=== PATIENT | male | born 1945 | race Caucasian/White ===

== ENCOUNTER → 2016-05-10 | Outpatient (CLI) | payer BC ==
[~2016-05-10] MED LIST: ASPI81TA28 PO; ATOR-24 PO; CLB/200 PO; CLR10 PO; CYM/30 PO; DIAZ10TA PO; DOCU100C31 PO; DUTA0.5C PO; GABA800T PO; GLC/500 PO; IPRA0.037 NAE; LEVE1TAB57 PO; LISI-788 PO; METH-307 PO; NXM/40 PO; OXYC-57 PO; OXYC15TA89 PO; OXYC60TA8 PO; OXYCONTIN PO; PENT400T2 PO; RANI300T2 PO; RXC5 PO; SNT/10 PO
== END | disposition home or self-care (01) ==
LOC: C.PATHSPEC 10:37
PROVIDERS: ATTEND Plastic Surgery
DX: D23.21 Other benign neoplasm of skin of right ear and external auricular canal (principal)

== ENCOUNTER → 2016-06-28 | Day surgery (SDC) | payer BC ==
[2016-06-21 13:15] VITALS: BMI 27.0
[~2016-06-28] VITALS: Ht 180.3 cm; Wt 88.2 kg
[~2016-06-28] MED LIST changes: +ONDANSETRON INJ 2 MG/ML 2 ML VIAL IV PRN; -OXYC15TA89 PO; -OXYC60TA8 PO; -RXC5 PO
[2016-06-28 09:08] VITALS: Ht 180.3 cm; Wt 88.2 kg
--- NOTE | 2016-06-28 09:28 | Endo History and Physical ---
History & Physical Date of Service: Jun 28, 2016. Chief Complaint: bloating Referring Physician: History of Present Illness Patient with several months of bloating. Past Medical History Arthritis, Reflux, Seizure Disorder, Cancer, High Cholesterol, Hypertension, Other Past Surgical History Hx Cardiac Surgery: No Hx Internal Defibrillator: No Hx Pacemaker: No Hx Abdominal Surgery: No Hx of Implantable Prosthesis: No Hx Post-Op Nausea and Vomiting: No Hx Cancer Surgery: Yes (SKIN EXCISION ON BACK) Hx Thoracic Surgery: No Hx Orthopedic: Yes (RT/LEFT SHOULDER ,RT KNEE ARTHROSCOPY, RIGHT ELBOW SX) Hx Urinary Tract Surgery: No Family History Colon CA Social History Smoking Status: Never Smoker Hx Substance Use: Yes (SEE MED REC) Hx Alcohol Use: No Allergies Coded Allergies: Adhesives (Verified Allergy, Unknown, SOME TAPES CAUSE SENSITIVITY, ) NO KNOWN DRUG ALLERGIES (Verified Allergy, Unknown, ., 06/21/16) Milk (Verified Adverse Reaction, Mild, GI DISRUPTIIONS, 06/21/16) Current Medications Reported Home Medications Medications Dose Route/Sig Max Daily Dose Days Date Category Dose Instructions Glucophage (Metformin Hcl) 500 Mg Tab 500 Mg PO BID 06/21/16 Reported Docusate Sodium 100 Mg Cap 1 Cap PO BID PRN 06/21/16 Reported CeleBREX (Celecoxib) 200 Mg Cap 200 Mg PO QAM 06/21/16 Reported Percocet 5MG/325MG (Oxycodone/Acetaminophen) Tab 1 Tablet PO Q4H PRN 06/21/16 Reported PAIN [Oxycontin] 30 Mg PO BID 06/21/16 Reported Atrovent Nasal [place] (Ipratropium [place] (Nasal)) 0.06 % Mary 2 [place] CARLITOS TID PRN 30 06/24/15 Reported Aspirin Ec (Aspirin) 81 Mg Tab 81 Mg PO QAM 06/24/15 Reported Lipitor (Atorvastatin Calcium) 40 Mg Tab 40 Mg PO QAM 06/24/15 Reported Trental (Pentoxifylline) 400 Mg Tab 400 Mg PO TID 06/24/15 Reported Valium (Diazepam) 10 Mg Tab 10 Mg PO Q8 PRN 06/24/[address] WITH MEDICATION Robaxin (Methocarbamol) 750 Mg Tab 750 Mg PO BID 06/24/15 Reported Keppra (Levetiracetam) 1,000 Mg Tab 1,000 Mg PO QPM 06/24/15 Reported Keppra (Levetiracetam) 1,000 Mg Tab 1,500 Mg PO QAM 06/24/15 Reported Claritin (Loratadine) 10 Mg Tab 10 Mg PO QAM 06/24/15 Reported Zestoretic 20MG/25MG (HCTZ/Lisinopril) Tab 1 Tab PO QAM 06/24/15 Reported Neurontin (Gabapentin) 800 Mg Tab 800 Mg PO QID 06/24/15 Reported Cymbalta (Duloxetine HCl) 30 Mg Cap 90 Mg PO QAM 30 06/24/15 Reported Nexium (Esomeprazole Magnesium) 40 Mg Capcr 40 Mg PO QAM 06/24/15 Reported Sonata (Zaleplon) 10 Mg Cap 10 Mg PO HS PRN 06/24/15 Reported Avodart (Dutasteride) 0.5 Mg Cap 1 Cap PO QAM 30 01/19/15 Reported Zantac (Ranitidine HCl) 300 Mg Tab 300 Mg PO HS 02/11/07 Reported Vital Signs Weight (Kilograms): 88.18 Height (Feet): 5 Height (Inches): 11 Date Time Temp Pulse Resp B/P Pulse Ox O2 Delivery O2 Flow Rate FiO2 06/28/16 09:13 36.9 64 24 126/72 97 Room Air 06/28/16 09:11 36.9 64 24 126/72 97 Room Air Physical Exam General Appearance: no apparent distress Respiratory/Chest: Auscultation: breath sounds normal Cardiovascular: Heart Auscultation: RRR Abdomen: Inspection & Palpation: soft Assessment and Plan EGD for bloating
--- NOTE | 2016-06-28 09:50 | Discharge Instructions ---
Endoscopy Patient Instructions Date / Procedure(s) Performed Jun 28, 2016. EGD Allergy Information Coded Allergies: Adhesives (Verified Allergy, Unknown, SOME TAPES CAUSE SENSITIVITY, ) NO KNOWN DRUG ALLERGIES (Verified Allergy, Unknown, ., 06/21/16) Milk (Verified Adverse Reaction, Mild, GI DISRUPTIIONS, 06/21/16) Discharge Date / Findings Jun 28, 2016. 1 cm hiatal hernia Mild gastritis Several gastric polyps (likely benign) Medication Instructions Stopped Medication(s): CAROLYN Reported Home Medications Medications Dose Route/Sig Max Daily Dose Days Date Category Dose Instructions Glucophage (Metformin Hcl) 500 Mg Tab 500 Mg PO BID 06/21/16 Reported Docusate Sodium 100 Mg Cap 1 Cap PO BID PRN 06/21/16 Reported CeleBREX (Celecoxib) 200 Mg Cap 200 Mg PO QAM 06/21/16 Reported Percocet 5MG/325MG (Oxycodone/Acetaminophen) Tab 1 Tablet PO Q4H PRN 06/21/16 Reported PAIN [Oxycontin] 30 Mg PO BID 06/21/16 Reported Atrovent Nasal [place] (Ipratropium [place] (Nasal)) 0.06 % Mary 2 [place] CARLITOS TID PRN 30 06/24/15 Reported Aspirin Ec (Aspirin) 81 Mg Tab 81 Mg PO QAM 06/24/15 Reported Lipitor (Atorvastatin Calcium) 40 Mg Tab 40 Mg PO QAM 06/24/15 Reported Trental (Pentoxifylline) 400 Mg Tab 400 Mg PO TID 06/24/15 Reported Valium (Diazepam) 10 Mg Tab 10 Mg PO Q8 PRN 06/24/[address] WITH MEDICATION Robaxin (Methocarbamol) 750 Mg Tab 750 Mg PO BID 06/24/15 Reported Keppra (Levetiracetam) 1,000 Mg Tab 1,000 Mg PO QPM 06/24/15 Reported Keppra (Levetiracetam) 1,000 Mg Tab 1,500 Mg PO QAM 06/24/15 Reported Claritin (Loratadine) 10 Mg Tab 10 Mg PO QAM 06/24/15 Reported Zestoretic 20MG/25MG (HCTZ/Lisinopril) Tab 1 Tab PO QAM 06/24/15 Reported Neurontin (Gabapentin) 800 Mg Tab 800 Mg PO QID 06/24/15 Reported Cymbalta (Duloxetine HCl) 30 Mg Cap 90 Mg PO QAM 30 06/24/15 Reported Nexium (Esomeprazole Magnesium) 40 Mg Capcr 40 Mg PO QAM 06/24/15 Reported Sonata (Zaleplon) 10 Mg Cap 10 Mg PO HS PRN 06/24/15 Reported Avodart (Dutasteride) 0.5 Mg Cap 1 Cap PO QAM 30 01/19/15 Reported Zantac (Ranitidine HCl) 300 Mg Tab 300 Mg PO HS 02/11/07 Reported Provider Instructions Activity Restrictions - No exercising or heavy lifting for 24 hours. - Do not drink alcohol the day of the procedure. - Do not drive a car or operate machinery until the day after the procedure. - Do not make any important decisions or sign important papers in 24 hours after the procedure. Following Day: - Return to full activity which may include returning to work/school. Diet Start your diet with liquids and light foods (jello, soup, juice, toast). Then eat your usual diet if not nauseated. Treatment For Common After Affects For mild abdominal pain, bloating, or excessive gas: - Rest - Eat lightly - Lie on right side Follow-Up Information Follow-up with DR. BLANE ANGEL as scheduled Symptoms may be related to a medication (perhaps Metformin) Anesthesia Information What You Should Know You have had a procedure that required some medicine to reduce anxiety and discomfort. This treatment is called moderate sedation. After receiving the treatment, you may be sleepy, but you will be able to breathe on your own. The effects of the treatment may last for several hours. Follow these instructions along with Activity/Diet recommendations noted above: * Do NOT do anything where dizziness or clumsiness would be dangerous. * Rest quietly at home today, then you can be up and about tomorrow. * Have a responsible person stay with you the rest of today. * You may have had an I.V. today. If so, you may take the dressing off later today. Recommendations Call your doctor if: * Trouble breathing * Continuous vomiting for more than 24 hours * Temperature above 101 degrees * Severe abdominal pain or bloating * Pain not relieved by pain medicine ordered * There is increased drainage or redness from any incision * A large amount of rectal bleeding greater than 2-3 tablespoons. (If you had a polyp/s removed or have hemorrhoids, a small amount of blood - from the rectum is to be expected.) * You have any unanswered questions or concerns. IN THE EVENT OF A SERIOUS EMERGENCY, GO TO THE NEAREST EMERGENCY ROOM Your discharge instructions were prepared by provider Tatiana Metcalf. Patient Instructions Signature Page Chon Martinez Patient (or Guardian) Signature/Date: I have read and understand the instructions given to me by my caregivers. Caregiver/RN/Doctor Signature/Date: The above-named patient and/or guardian has received patient instructions on this date. + Original Patient Signature Page (only) stays with chart. Please make copy for patient.
--- NOTE | 2016-06-28 09:51 | GI REPORT ---
Procedure Date: 06/28/2016 9:31 AM Procedure: Upper GI endoscopy Indications: Abdominal distention, Abdominal bloating Medicines: Monitored Anesthesia Care Complications: No immediate complications. Estimated blood loss: Minimal. Estimated Blood Loss: Estimated blood loss was minimal. Procedure: Pre-Anesthesia Assessment: - Prior to the procedure, a History and Physical was performed, and patient medications, allergies and sensitivities were reviewed. The patient's tolerance of previous anesthesia was reviewed. - The risks and benefits of the procedure and the sedation options and risks were discussed with the patient. All questions were answered and informed consent was obtained. - Patient identification and proposed procedure were verified prior to the procedure by the physician, the nurse and the clothing sales assistant. The procedure was verified in the procedure room. - Pre-procedure physical examination revealed no contraindications to sedation. - ASA Grade Assessment: III - A patient with severe systemic disease. - After reviewing the risks and benefits, the patient was deemed in satisfactory condition to undergo the procedure. - The anesthesia plan was to use general anesthesia. - Immediately prior to administration of medications, the patient was re-assessed for adequacy to receive sedatives. - The heart rate, respiratory rate, oxygen saturations, blood pressure, adequacy of pulmonary ventilation, and response to care were monitored throughout the procedure. - The physical status of the patient was re-assessed after the procedure. After obtaining informed consent, the endoscope was passed under direct vision. Throughout the procedure, the patient's blood pressure, pulse, and oxygen saturations were monitored continuously. The scope was introduced through the mouth, and advanced to the third part of duodenum. The upper GI endoscopy was accomplished without difficulty. The patient tolerated the procedure well. Findings: The upper third of the esophagus and middle third of the esophagus were normal. A small hiatus hernia was found. The proximal extent of the gastric folds (end of tubular esophagus) was 36 cm from the incisors. The hiatal narrowing was 37 cm from the incisors. The Z-line was 36 cm from the incisors. Diffuse mild inflammation characterized by congestion (edema), erythema and granularity was found in the entire examined stomach. Biopsies were taken with a cold forceps for histology. Estimated blood loss was minimal. Multiple 3 to 5 mm sessile polyps with no bleeding and no stigmata of recent bleeding were found in the gastric body. Biopsies were taken with a cold forceps for histology. Estimated blood loss was minimal. The examined duodenum was normal. Biopsies were taken with a cold forceps for histology. Estimated blood loss was minimal. Impression: - Normal upper third of esophagus and middle third of esophagus. - Small hiatus hernia. - Gastritis. Biopsied. - Multiple gastric polyps. Biopsied. - Normal examined duodenum. Biopsied. Recommendation: - Discharge patient to home (ambulatory). - Advance diet as tolerated today. - Await pathology results. - Consider stopping Metformin as this may be causing his symptoms. Tatiana Metcalf D.O. Tatiana Metcalf, DO 06/28/2016 9:50:34 AM This report has been signed electronically. Note Initiated On: 06/28/2016 9:31 AM I attest to the content of the Intraoperative Record and orders documented therein, exceptions below
[2016-06-28 10:18] VITALS: BP 124/73; PULSE 57; O2SAT 96
--- NOTE | 2016-06-28 13:21 | Anesthesiology Progress Note ---
Anesthesia Post Op Note Date & Time Jun 28, 2016 at 13:20 Vital Signs Pain Intensity: 8 Vital Signs Past 12 Hours Date Time Temp Pulse Resp B/P Pulse Ox O2 Delivery O2 Flow Rate FiO2 06/28/16 10:18 57 20 124/73 96 Room Air 06/28/16 10:03 60 20 128/81 95 Room Air 06/28/16 09:48 61 16 111/68 95 Room Air 06/28/16 09:13 36.9 64 24 126/72 97 Room Air 06/28/16 09:11 36.9 64 24 126/72 97 Room Air Notes Mental Status: alert / awake / arousable, participated in evaluation Pt Amnestic to Procedure: Yes Nausea / Vomiting: adequately controlled Pain: adequately controlled Airway Patency, RR, SpO2: stable & adequate BP & HR: stable & adequate Hydration State: stable & adequate Anesthetic Complications: no major complications apparent
== END | disposition home or self-care (01) ==
LOC: C.GI 08:55
PROVIDERS: ATTEND Internal Medicine Gastroenterology
DX: K29.70 Gastritis, unspecified, without bleeding (principal); K31.7 Polyp of stomach and duodenum; K44.9 Diaphragmatic hernia without obstruction or gangrene; K21.9 Gastro-esophageal reflux disease without esophagitis; Z80.0 Family history of malignant neoplasm of digestive organs; M19.90 Unspecified osteoarthritis, unspecified site; G40.909 Epilepsy, unspecified, not intractable, without status epilepticus; E78.5 Hyperlipidemia, unspecified; I10 Essential (primary) hypertension; Z79.82 Long term (current) use of aspirin; Z98.890 Other specified postprocedural states

== ENCOUNTER → 2016-08-13 | Outpatient (CLI) | payer OTHER, BC ==
[~2016-08-13] MED LIST changes: -ONDANSETRON INJ 2 MG/ML 2 ML VIAL IV PRN
== END | disposition home or self-care (01) ==
LOC: C.RDSM 12:52
PROVIDERS: ATTEND Physical Medicine & Rehabilitation Sports Medicine
DX: M17.0 Bilateral primary osteoarthritis of knee (principal)

== ENCOUNTER → 2017-06-07 | Outpatient (CLI) | payer OTHER, BC ==
--- NOTE | 2017-06-07 11:43 | DIAGNOSTIC IMAGING REPORT ---
BILATERAL KNEE RADIOGRAPHS CLINICAL HISTORY: PRIMARY OSTEOARTHRITIS OF BOTH KNEES COMPARISON: Knee radiographs August 13, 2016. FINDINGS: Right knee: There is moderate medial compartment joint space narrowing. There is moderate osteophytosis within the patellofemoral compartment. No fracture or suspicious lesion is present. There is a probable small right knee joint effusion. There is moderate vascular calcification. An apparent 2.2 cm subchondral lucency within the medial femoral condyle is noted. Left knee: Alignment of left knee is anatomic. No fracture or suspicious lesion. There is mild medial compartment joint space narrowing. There is moderate osteophytosis within the patellofemoral compartment. A probable small left knee joint effusion is noted. IMPRESSION: Right knee: 1. Moderate medial and patellofemoral compartment osteoarthritis. 2. No acute fracture. 3. 2.2 cm apparent subchondral lucency within the medial femoral condyle which may reflect an osteochondral abnormality. 4. Small right joint effusion. Left knee: 1. Mild to moderate medial and patellofemoral compartment osteoarthrosis of the left knee. 2. Suspected small left knee joint effusion. Electronically signed by: Chaparro Fung M.D. 06/07/2017 11:42 AM Dictated Date/Time: 06/07/2017 11:38 AM
== END | disposition home or self-care (01) ==
LOC: C.RDSM 11:10
PROVIDERS: ATTEND Physician Assistant
DX: M17.0 Bilateral primary osteoarthritis of knee (principal)

== ENCOUNTER → 2017-06-24 | Outpatient (CLI) | payer OTHER, BC ==
[~2017-06-24] MED LIST changes: +AMIT50TA3 PO; +IPRA0.06 NAE; +KPP/1000 PO; +OXYC1TAB3 PO
--- NOTE | 2017-06-24 12:03 | DIAGNOSTIC IMAGING REPORT ---
LEFT SHOULDER 3 VIEWS HISTORY: LEFT SHOULDER PAIN COMPARISON: None. FINDINGS: There is no fracture or dislocation. Soft tissues are unremarkable. The left clavicle is intact. Tiny marginal osteophytes and minimal cartilage space narrowing at the glenohumeral joint. Spurring and slight fragmentation of the lateral acromion which is likely chronic. IMPRESSION: 1. No fracture or dislocation within the left shoulder. 2. Minor degenerative changes as described above. Electronically signed by: Chandana Morel M.D. 06/24/2017 12:01 PM Dictated Date/Time: 06/24/2017 11:57 AM
== END | disposition home or self-care (01) ==
LOC: C.RDSM 14:30
PROVIDERS: ATTEND Physician Assistant
DX: M75.122 Complete rotator cuff tear or rupture of left shoulder, not specified as traumatic (principal)

== ENCOUNTER → 2017-07-02 | Day surgery (SDC) | payer OTHER, BC ==
[2017-06-25 10:42] VITALS: Ht 180.3 cm; Wt 86.4 kg
[~2017-07-02] VITALS: Ht 180.3 cm; Wt 86.4 kg
[~2017-07-02] MED LIST changes: +ATROPINE SULFATE 0.1 MG/ML 5ML SYR IV PRN; +CEFAZOLIN 2000MG IV PUSH 15 ML IV SCH; +DEXAMETHASONE SOD INJ 4 MG/ML VIAL ONE; +EpINEphrine HCL INJ 1 MG/ML 1ML SYRINGE ONE; +EpINEphrine INJ 1MG/ML AMP 1 MG/ML AMP ONE; +FENTANYL CITRATE INJ 50 MCG/1 ML 2 ML VIAL IV PRN; +FENTANYL CITRATE INJ 50 MCG/1 ML 2 ML VIAL ONE; -GLC/500 PO; -IPRA0.037 NAE; +KETOROLAC TROMETHAMINE 15 MG/ML VIAL IV. PRN; +KETOROLAC TROMETHAMINE 30 MG/ML VIAL IV. PRN; +LABETALOL HCL IV 5 MG/ML 20ML IV PRN; +LACTATED RINGER'S 1000ML 1,000 ML IV SCH; -LEVE1TAB57 PO; +LEVOFLOXACIN 500 MG TAB ONE; +LEVOFLOXACIN 500 MG TAB PO SCH; +LIDOCAINE HCL 2% 2 ML VIAL (20MG/ML) ONE; +MIDAZOLAM HCL 1 MG/ML 2ML VIAL ONE; +ONDANSETRON INJ 2 MG/ML 2 ML VIAL IV PRN; +ONDANSETRON INJ 2 MG/ML 2 ML VIAL ONE; -OXYC-57 PO; +OXYCODONE/ACETAMINOPHEN 5-325 TAB PO PRN; -PENT400T2 PO; +PENT400T7 PO; +PROPOFOL IV EMULSION 10 MG/ML 20 ML VIAL IV ONE; +ROPIVACAINE 0.5% 5 MG/ML 30 ML VIAL ONE; -SNT/10 PO; +SODIUM CHLORIDE 0.9% 1000ML 1,000 ML IV SCH
--- NOTE | 2017-07-02 06:46 | History & Physical Bridge Note ---
H&P Re-Evaluation Bridge Note: I have examined the patient, reviewed the History & Physical and in the interval since the performance of the History & Physical I have noted the following changes of clinical significance:consent obtained. No changes noted
--- NOTE | 2017-07-02 06:48 | Discharge Instructions ---
Discharge Instructions Date of Service Jul 02, 2017. Visit Reason for Visit: Left Shoulder Rotator Cuff Tear Discharge Discharge Diagnosis / Problem: same Discharge Goals Goal(s): Decrease discomfort, Improve function Medications Stopped Medications Name(s): celebrex and ASA Restart Stopped Medication(s): resume all meds as scripts direct Activity Recommendations Activity Limitations: as noted below Lifting Limitations: gradually increase as tolerated, until after follow-up appointment Exercise/Sports Limitations: until after follow-up appointment May Resume Sexual Activity: when tolerated, after follow-up appointment Anesthesia . Post Anesthesia Instructions: If you have had General Anesthesia or IV Sedation: * Do not drive today. * Resume driving when surgeon permits. * Do not make important decisions or sign legal documents today. * Call surgeon for: 1. Temperature elevations greater than 101 degrees F. 2. Uncontrollable pain. 3. Excessive bleeding. 4. Persistent nausea and vomiting. 5. Medication intolerance (nausea, vomiting or rash). * For nausea and vomiting use only clear liquids such as: tea, soda, bouillon until nausea subsides, then gradually increase diet as tolerated. * If you have any concerns or questions, call your surgeon's office. If physician is unavailable and it is an emergency, call 911 or go to the nearest emergency room. . Instructions / Follow-Up Instructions / Follow-Up The following are instructions to follow after "Shoulder Surgery" including, Acromioplasty, Rotator Cuff Repair and Instability Surgery ACTIVITY RECOMMENDATIONS: * Minimize activity after surgery. * No excessive walking, jogging, sports or laboring. * Return to activity is individualized depending on the patient and type of surgery. * Driving is not permitted until at least your first post operative visit. Please ask your doctor when it is safe to resume driving. * Expect increased discomfort with increased activity. Continue to ice the shoulder as needed. SCHOOL/WORK RECOMMENDATIONS: * You may return to sedentary work or school when you are feeling more comfortable. This is usually 3-7 days after surgery. MEDICATIONS: * You will have a prescription for pain medication and an anti-inflammatory medication after surgery. * Use the pain medication for severe pain and the anti-inflammatory for less severe pain. Once the pain medication has run out, try to use the anti-inflammatory medication. If this is not effective, contact the office for assistance. * The pain medication may cause nausea, constipation and drowsiness. You should see how they affect you before driving or similar activity. * The anti-inflammatory medication may cause stomach upset and bleeding. If this occurs let your doctor know immediately . * Take a stool softener like Colace or a laxative like Senokot to prevent constipation. DIET: * Resume previous diet. SPECIAL CARE: ICE: You have the option of an ice cooler, gel packs or ice bags. * If you have an ice cooler, refer to the instructions for that device. The ice cooler may be used continuously. * If you do not have an ice cooler, you will need to use ice bags or gel packs. Do not apply ice directly to the skin. Use a thin dressing or hiram shirt between the skin and ice bag. Apply ice for 20-30 minutes and repeat every 2-4 hours. This is especially important for the first 7-10 days after surgery. Once the pain improves, use ice as needed. ELEVATION: * You may be more comfortable sleeping in an upright position. Use the sling to elevate your arm. DRESSING: * Your dressing will be changed at your first therapy appointment approximately 4-5 days after surgery. Band-aids, tape strips or gauze may be applied. You may then change your dressing daily. * Reapply dressing followed by the EBIce cooling pad (if chosen) and then the sling. * Always wash your hands prior to touching the incision area. * Once the stitches are removed, you may leave the wound open to air or cover with gauze. * Expect some bloody drainage for the first few days after surgery. * Leave the tape strips, if present, in place for 5-7 days. * Band-aids and gauze may be changed daily. * There may be a gauze pad in your armpit area. This can be changed daily or replaced by a dry washcloth. SLING/BRACE: * You will need to use a sling or brace after surgery. The length of time the sling is used is dependent upon the type of surgery performed. * Arthroscopic Acromioplasty requires use of the sling for 2-4 weeks for comfort. * Labral procedures and Rotator Cuff Repairs require use of the sling for a longer period of time. Please check with your doctor prior to discontinuing the sling. BATHING: * You may shower or sponge-bathe immediately after surgery. The post operative shoulder dressing is mostly water-tight. You may shower right over this dressing, but be reasonably careful not to get the gauze or incision wet. * Once the dressing has been changed on the fourth or fifth day after surgery, you may shower and get the incision wet. * Wash with regular soap and water. * Do not bathe (submerge the incision), soak, swim or use a hot tub until the incision is completely healed over with normal skin and the doctor has given the OK to proceed. * There is no need to apply any ointments, powders or salves to your incision. * Do not apply alcohol or hydrogen peroxide directly to the incision. * Diluted peroxide (50:50 mixture with sterile saline) may be used to clean dried blood from around the incision area. THERAPY: * You will begin therapy four or five days after surgery. * Organized therapy with the therapist is important for the first 2-4 months after surgery depending on the type of procedure. During that time you will attend therapy 1-3 times per week. * You will also need to do daily exercises for range of motion and strength as instructed. * Patients who have a Capsular Shift Procedure will need to abide by temporary range of motion limitations. * Patients having Rotator Cuff Surgery are not allowed to actively lift their arms until 4-6 weeks after surgery. * Please check with your doctor regarding appropriate motion restrictions. FOLLOW UP VISIT: * If not already scheduled, please call the office at to schedule a follow-up appointment for 10 days after surgery and monthly thereafter. Diet Recommendations Recommended Home Diet: resume previous diet Procedures Procedures Performed: see op note Pending Studies Studies pending at discharge: no Medical Emergencies . Who to Call and When: Medical Emergencies: If at any time you feel your situation is an emergency, please call 911 immediately. . Non-Emergent Contact Non-Emergency issues call your: Specialist Call Non-Emergent contact if: wound has increased drainage, wound has increased redness, wound has increased pain . . "Provider Documentation" section prepared by Berry Real. .
--- NOTE | 2017-07-02 08:08 | [facility] Post Operative Brief Note ---
Immediate Operative Summary Operative Date Jul 02, 2017. Pre-Operative Diagnosis Left Shoulder Rotator Cuff Tear Post-Operative Diagnosis Same Procedure(s) Performed Left Shoulder Arthroscopy, Rotator Cuff Repair Surgeon Dr. Real Buffing And Polishing Wheel Repairer Surgeon(s) Dr. Hewitt (Fellow) Nasir Santoyo PA-C Estimated Blood Loss TRACE Findings Consistent with Post-Op Diagnosis Fluids (cc crystalloids) 1200cc Specimens None Drains None Anesthesia Type General Regional Complication(s) none Disposition Accompanied Pt To Recovery: no Disposition: Recovery Room / PACU
--- NOTE | 2017-07-02 08:39 | OPERATIVE REPORT ---
DATE OF OPERATION: 07/02/2017 SURGEON: Berry Real MD [employer] OPERATOR: Marcelina. SECOND [employer] MACHINE OPERATOR: Nasir Santoyo PA-C PREOPERATIVE DIAGNOSIS: Impingement, right shoulder with rotator cuff tear, moderate size. POSTOPERATIVE DIAGNOSIS: Impingement, right shoulder with rotator cuff tear, moderate size. OPERATION PERFORMED: 1. Exam under anesthesia. 2. Diagnostic arthroscopy. 3. Arthroscopic incidental debridement internal or glenohumeral joint. 4. Arthroscopic rotator cuff repair of medium size tear. PERIOPERATIVE SITUATION: Medically cleared male with intractable shoulder pain. Physical exam, x-ray, and MRI scan consistent with rotator cuff tendinopathy. He also has a tear. PROCEDURE: The patient was appropriately identified, site verified, consent verified, 2 grams of Ancef confirmed as being given. The left upper extremity was prepped and draped in usual routine fashion. EUA revealed no instability. A posterior portal was made 2 cm medial and inferior to posterolateral tip of the acromion. An anterolateral portal made with needle localization, an anterior portal made just off the edge of the resection of his previous AC joint resection. The joint was entered. Inspection of the joint revealed some labral disease. This was then incidentally debrided. There were some minor biceps changes. These were debrided. The biceps appeared stable. The rotator cuff tear was identified on its articular side and was debrided. Once this was all cleaned, the bursal side was entered. The remaining bursa was debrided. The rotator cuff tear identified and mobilized to probably about 2.5 cm in length. Two anchor holes were then made and 3 sutures placed. The sutures were double loaded on the posterior anchor and single loaded on the anterior anchor. Good rotator cuff repair was obtained. Rotating the arm revealed good apposition of the cuff to the bone. The procedure was then terminated. All instruments and fluid removed. The portals closed with 3-0 nylon, dressed with Xeroform, 4 x 4 gauze, ABD pads and Ioban dressing. Overall prognosis for the shoulder is guarded based on his overall comorbidities. They understood this going and all the risks and benefits. ESTIMATED BLOOD LOSS: Trace. CRYSTALLOID: 1200 mL. DVT prophylaxis with aspirin. I attest to the content of the Intraoperative Record and any orders documented therein. Any exception s are noted below.
[2017-07-02 09:05] VITALS: TEMP 36.4
--- NOTE | 2017-07-02 09:29 | Anesthesia Progress Nt - [facility] ---
Anesthesia Post Op Note Date & Time Jul 02, 2017 at 09:28 Vital Signs Pain Intensity: 0 Vital Signs Past 12 Hours Date Time Temp Pulse Resp B/P (MAP) Pulse Ox O2 Delivery O2 Flow Rate FiO2 07/02/17 09:05 36.4 63 12 121/78 (92) 94 Room Air 07/02/17 08:52 64 1 95 07/02/17 08:52 64 1 07/02/17 08:50 135/74 07/02/17 08:47 65 6 07/02/17 08:47 66 6 95 07/02/17 08:46 64 1 07/02/17 08:46 64 1 94 07/02/17 08:46 36.4 68 12 132/73 95 Room Air 07/02/17 08:45 132/73 07/02/17 08:41 65 1 96 07/02/17 08:41 65 1 07/02/17 08:40 133/80 07/02/17 08:36 63 9 100 07/02/17 08:36 63 9 07/02/17 08:35 136/79 07/02/17 08:31 70 12 142/80 100 07/02/17 08:31 69 12 07/02/17 08:26 68 7 07/02/17 08:26 69 7 100 07/02/17 08:25 68 17 07/02/17 08:25 68 17 142/83 100 07/02/17 08:20 80 07/02/17 08:20 80 156/79 100 07/02/17 08:20 36.4 80 20 156/79 100 Diffusion Mask 6 07/02/17 06:34 36.5 68 16 139/84 (102) 97 Room Air Notes Mental Status: alert / awake / arousable, participated in evaluation Pt Amnestic to Procedure: Yes Nausea / Vomiting: adequately controlled Pain: adequately controlled Airway Patency, RR, SpO2: stable & adequate BP & HR: stable & adequate Hydration State: stable & adequate Anesthetic Complications: no major complications apparent
[2017-07-02 09:37] VITALS: BP 144/82; PULSE 68; O2SAT 95
--- NOTE | 2017-07-02 19:37 | [facility] Operative Report ---
Operative Report Operative Date Jul 02, 2017. Pre-Operative Diagnosis Left Shoulder Rotator Cuff Tear Post-Operative Diagnosis Left shoulder same Procedure(s) Performed Left Shoulder Arthroscopy, Rotator Cuff Repair Surgeon Dr. Real Biz[employer] Architect Surgeon(s) Dr. Hewitt (Fellow) Nasir Santoyo PA-C Estimated Blood Loss TRACE Findings Left shoulder rotator cuff tear Fluids 1200cc Specimens None Drains None Anesthesia Type General Regional Complication(s) none Disposition no Recovery Room / PACU Indications This 72-year-old white male presented to the office with complaints of intractable left shoulder pain. He had tried conservative care measures including activity modification and cortisone injection without improvement. X- ray and MRI were obtained. He elected to proceed with surgical intervention after being educated about potential risks and outcomes. Description of Procedure Patient was administered a regional block and then taken to the operating room where he was given general anesthesia. He was prepped and draped in usual sterile fashion. Please see Dr. Real's operative report for specifics of the procedure. I was present for the entire case from initial patient positioning through final wound closure. Assistance was provided in patient positioning, arthroscopy, hardware placement, and final wound closure. Patient was taken to the recovery room in satisfactory condition. I attest to the content of the Intraoperative Record and any orders documented therein. Any exceptions are noted below.
== END | disposition home or self-care (01) ==
LOC: X.SURG 06:08
PROVIDERS: ATTEND Physical Medicine & Rehabilitation Sports Medicine
DX: M25.811 Other specified joint disorders, right shoulder (principal); M75.101 Unspecified rotator cuff tear or rupture of right shoulder, not specified as traumatic; I10 Essential (primary) hypertension; M19.90 Unspecified osteoarthritis, unspecified site; E78.00 Pure hypercholesterolemia, unspecified; K21.9 Gastro-esophageal reflux disease without esophagitis; N40.0 Benign prostatic hyperplasia without lower urinary tract symptoms; Z79.899 Other long term (current) drug therapy; Z79.82 Long term (current) use of aspirin